=== PATIENT | female | born 1950 | race African-American/Black ===

== ENCOUNTER 2017-10-06 05:58 | Day surgery (SDC) | payer MEDICARE, OTHER ==
--- NOTE | 2017-10-05 13:23 | Pre-Procedure Note/Attestation ---
Pre-Procedure Note/Attestation Complete Prior to Procedure Planned Procedure: left Procedure Narrative: [place] with IOL, OS Indications for Procedure Pre-Operative Diagnosis: cataract Attestation I attest that I discussed the nature of the procedure; its benefits; risks and complications; and alternatives (and the risks and benefits of such alternatives ), prior to the procedure, with the patient (or the patient's legal junior sales representative). I attest that, if there was a reasonable possibility of needing a blood transfusion, the patient (or the patient's legal junior sales representative) was given the [facility] standardized written summary, pursuant to the Getachew Wanda Blood Safety Act ([place] Health and Safety Code # 1645, as amended). I attest that I re-evaluated the patient just prior to the surgery and that there has been no change in the patient's H&P, except as documented below: MATT WALTER Oct 05, 2017 13:23
--- NOTE | 2017-10-05 15:40 | Opthalmology H&P ---
Ophthalmology H&P H&P Chief Complaint: decreased vision in left eye HPI Vision Affects Ability to: read, focus/use eyes together, manage personal affairs HPI Narrative blurry vsion Exam Visual Acuity: OD: 20/80 OS: 20/200 Tension: OD: 14 OS: 17 Eye Exam: normal OU: external exam, palpebral fissure-width, marginal reflex distance, levator function, corneas, anterior chambers, findings: lens - OD: ns OS: ns, fundus exam - HTN retinopathy OU Assessment/Plan Diagnosis: (1) Nuclear sclerotic cataract of left eye Treatment Plan: cataract extraction w/ lens implant Goals of Treatment: improvement of vision, enhance quality of life Attestation Attestation The risks and benefits of the surgery as well as alternative procedures were explained to the patient in detail. MATT WALTER Oct 05, 2017 15:40
[2017-10-06] VITALS (8 sets, daily range): BP systolic 133–189; BP diastolic 62–79
[~2017-10-06] VITALS: Ht 165.1 cm; Wt 89.8 kg
[2017-10-06] MEDS ORDERED: Akten 3.5% 1ml Btl LEFT EYE ONE (07:00)
[2017-10-06] MEDS ORDERED: Maxitrol Opth Oint 3.5gm ONE (07:00)
[2017-10-06] MEDS ORDERED: Tetracaine 0.5% Opth 4ml Soln LEFT EYE ONE (07:00)
[2017-10-06] MEDS ORDERED: Dexamethasone 4mg/ml vial ONE (07:00)
[2017-10-06] MEDS ORDERED: Sterile Water 10ml Vial ONE (07:00)
[2017-10-06] MEDS ORDERED: Pred Forte 1% Opth Susp 1ml ONE (07:00)
[2017-10-06] MEDS ORDERED: EPINEPHrine 1mg/1ml Amp ONE (07:00)
[2017-10-06] MEDS ORDERED: Tetracaine 0.5% Opth 4ml Soln ONE (07:00)
[2017-10-06] MEDS ORDERED: Proparacaine 0.5% Opth Soln 15ml LEFT EYE ONE (07:00)
[2017-10-06] MEDS ORDERED: BSS 500ml btl ONE (07:00)
[2017-10-06] MEDS: Tropicamide 1% Opth 15ml Soln LEFT EYE SCH ×3 (07:34→07:53)
[2017-10-06] MEDS: Tobramycin Op Soln 0.3% 5ml LEFT EYE SCH ×3 (07:35→07:53)
[2017-10-06] MEDS: Ketorolac Tromethamine Opth 5ml Soln LEFT EYE SCH ×3 (07:35→07:53)
[2017-10-06] MEDS: Cyclopentolate 1% Opth Sol 2ml LEFT EYE SCH ×3 (07:35→07:53)
[2017-10-06] MEDS: Phenylephrine 10% Opth Soln 5ml LEFT EYE SCH ×3 (07:35→07:53)
[2017-10-06] MEDS ORDERED: LISINOPRIL20 MG ORAL (07:59)
[2017-10-06] MEDS ORDERED: MELOXICAM15 MG PO (07:59)
[2017-10-06] MEDS ORDERED: GABAPENTIN300 MG ORAL (07:59)
[2017-10-06] MEDS ORDERED: NORVASC5 MG ORAL (07:59)
--- NOTE | 2017-10-06 09:32 | Anethesia Preoperative Eval ---
VARSHA AGUAYO M.D. 10/06/17 0932: Anesthesia Pre-op PMH/ROS General Date of Evaluation: Oct 06, 2017 Anesthesiologist: Dimitri ASA Score: ASA 3 Mallampati Score Class I : Soft palate, uvula, fauces, pillars visible Class II: Soft palate, uvula, fauces visible Class III: Soft palate, base of uvula visible Class IV: Only hard plate visible Mallampati Classification: Class III Surgeon: Ning Diagnosis: Left cataract Surgical Procedure: Left cataract extraction with IOL Anesthesia History: none Family History: no anesthesia problems Allergies: Coded Allergies: No Known Allergies (Unverified , 10/06/17) Medications: see eMAR Past Medical History Cardiovascular: Reports: HTN, other - HLD, Denies: CAD, VT, valve dz, arrhythmia Pulmonary: Reports: asthma, Denies: COPD, FLAKO, other Gastrointestinal/Genitourinary: Reports: GERD, Denies: CRI, ESRD, other Neurologic/Psychiatric: Reports: other - vertigo, Denies: dementia, CVA, depression/anxiety, TIA Endocrine: Denies: DM, hypothyroidism, steroids, other HEENT: Reports: cataract (L), cataract (R), Denies: glaucoma, [place] (L), [place] (R), other Hematology/Immune: Reports: anemia - chronic, Denies: DVT, bleeding disorder, other Musculoskeletal/Integumentary: Reports: OA, Denies: RA, DJD, DDD, edema, other Other: obesity PSxH Narrative: Denies Anesthesia Pre-op Phys. Exam Physician Exam Last Vital Signs Date Time Temp Pulse Resp B/P (MAP) Pulse Ox O2 Delivery O2 Flow Rate FiO2 10/06/17 07:47 98.2 67 18 142/63 100 Room Air Constitutional: NAD Cardiovascular: RRR Respiratory: CTA Airway Exam Mallampati Score: Class III MO: limited ROM: limited Teeth: intact Anesthesia Pre-op A/P Labs see chart Studies Pre-op Studies: EKG - srs Risk Assessment & Plan Assessment: ASA III Plan: MAC Status Change Before Surgery: No Pre-Antibiotics Drug: N/A MOE WATSON 10/06/17 1050: Anesthesia Pre-op PMH/ROS General Date of Evaluation: Oct 06, 2017 Time of Evaluation: 10:20 Anesthesiologist: Dimitri Allergies: Coded Allergies: No Known Allergies (Unverified , 10/06/17) VARSHA AGUAYO M.D. Oct 06, 2017 09:32 MOE WATSON Oct 06, 2017 10:50
[2017-10-06] MEDS ORDERED: NS Irrig 1000ml ONE (10:30)
[2017-10-06] MEDS ORDERED: Midazolam 2mg/2ml Inj ONE (10:30)
[2017-10-06] MEDS ORDERED: Sterile Water Irrig 1000ml IRRIG ONE (10:30)
[2017-10-06] MEDS ORDERED: fentaNYL 100 mcg/2 mL IV ONE (10:30)
[2017-10-06] MEDS ORDERED: BSS 15ml BTL ONE (10:55)
[2017-10-06] MEDS ORDERED: Povidone-Iodine 5% opth solution ONE (10:55)
[2017-10-06] MEDS ORDERED: DiphenhydrAMINE 50mg/ml Inj ONE (10:55)
[2017-10-06] MEDS ORDERED: Sodium Hyaluronate 14 mg/ml 0.85ml ONE (10:56)
[2017-10-06] MEDS ORDERED: acetaZOLAMIDE 500mg Inj ONE (11:19)
[2017-10-06] MEDS ORDERED: LR 1000ml 1,000 ML IVLG SCH (11:44)
--- NOTE | 2017-10-06 11:44 | 48 Hour Post Anesthesia Eval ---
Post Anesthesia Evaluation Procedure: Left cataract extraction Date of Evaluation: Oct 06, 2017 Airway: patent Nausea: No Vomiting: No Pain Intensity: 0 Hydration Status: adequate Cardiopulmonary Status: at baseline Mental Status/LOC: patient returned to baseline Post-Anesthesia Complications: 0 Follow-up care needed: ready to discharge VARSHA AGUAYO M.D. Oct 06, 2017 11:44
--- NOTE | 2017-10-06 11:44 | Immediate Post-Op Evaluation ---
Immediate Post-Op Evalulation Immediate Post-Op Evalulation Procedure: Left cataract extraction with IOL Date of Evaluation: Oct 06, 2017 Time of Evaluation: 11:46 IV Fluids: 600 Blood Products: 0 Estimated Blood Loss: 0 Urinary Output: 0 Blood Pressure Systolic: 189 Blood Pressure Diastolic: 70 Pulse Rate: 77 Respiratory Rate: 16 O2 Sat by Pulse Oximetry: 100 Temperature (Fahrenheit): 98.9 Pain Score (1-10): 0 Nausea: No Vomiting: No Complications 0 Patient Status: awake, reacts, patent, none Hydration Status: adequate Drug: N/A VARSHA AGUAYO M.D. Oct 06, 2017 11:44
[2017-10-06] MEDS ORDERED: DiphenhydrAMINE 50mg/ml Inj IVP PRN (11:45)
--- NOTE | 2017-10-09 09:31 | Brief Operative Note ---
Immediate Post Operative Note Operative Note Chief Complaint: blurry vision Pre-op Diagnosis: cataract, OS Procedure: Cataract extraction, OS Post-op Diagnosis: Aphakia, OS Post-op Diagnosis: same as pre-op Findings: consistent w/pre-op dx studies Surgeon: Ning Anesthesiologist: Ghislaine Anesthesia: MAC Specimen: none Complications: none Fluids: LR Estimated Blood Loss: none Drains: none Implant(s) used?: Yes MATT WALTER Oct 09, 2017 09:31
--- NOTE | 2017-10-09 09:46 | Operative Note - PDOC ---
Operative Note Operative Note Date of Operation/Procedure: Oct 06, 2017 Chief Complaint: blurry vision Pre-op Diagnosis: cataract, OS Procedure: Cataract extraction, OS Post-op Diagnosis: Aphakia, OS Post-op Diagnosis: same as pre-op Operative Findings: consistent w/pre-op dx studies, other - zonular dislysis, OS Surgeon: Ning Anesthesiologist: Ghislaine Anesthesia: MAC Specimen: none Complications: none Condition: stable Fluids: LR Estimated Blood Loss: none Drains: none Implant(s) used?: Yes Indications for Procedure cataract Description of Procedure This patient has been complaining visually significant cataract in the affected eye with the best corrected visual acuity under moderate glare conditions worse. The patient complains of difficulties with glare in performing activities of daily living and wants to manage personal affairs with comfort and accuracy and see well enough to move with safety at home and outdoors. The risks, benefits and alternatives of the procedure were discussed with the patient in the office prior to scheduling surgery. All questions from the patient were answered after the surgical procedure was explained in detail. The risks of the procedure as explained to the patient include, but are not limited to, pain, infection, bleeding, loss of vision, retinal detachment, need for further surgery, loss of lens nucleus, double vision, etc. Alternative procedures were discussed which include, to do nothing or seek a second opinion. Informed consent for this procedure was obtained from the patient. The patient was referred to a primary care physician for a cardiopulmonary clearance prior to surgery, after proper evaluation was done patient was properly scheduled for outpatient surgery. The patient was brought to the operating room where the anesthesiologist established I.V. lines and cardiac monitoring leads. Mild intravenous sedation was administered. The patient was then prepared with a 5% solution of povidone -iodine to the conjunctival fornix and lashes, and a 5% solution of povidone- iodine to the lids and periorbital skin. The patient was then draped in the usual sterile fashion. A lid speculum was then placed in the operative eye. A keratome blade was then used to create a biplanar incision into the anterior chamber. Viscoelastics was then instilled into the anterior chamber. As the utrata forceps was being introduced to start capsulorrhexis, it was noted that the lens was tilted and zonular dialysis was noted. After careful re evaluation of the surgical field, viscoelastics was removed from the anterior chamber using the irrigation and aspiration unit. No further manipulation was done. The corneal wound was then tested for leaks and none were found. The lid speculum were then removed. Sponge and needle counts were correct. An eye patch and shield were placed over the operative eye. The patient was taken to the recovery room in stable condition. The patient was then referred to another facility for further evaluation and management on the same day. MATT WALTER Oct 09, 2017 09:45
== END 2017-10-06 12:45 | disposition home or self-care (01) ==
LOC: SUR 05:58
DX: H25.12 Age-related nuclear cataract, left eye (principal); I12.9 Hypertensive chronic kidney disease with stage 1 through stage 4 chronic kidney disease, or unspecified chronic kidney disease; N18.3 Chronic kidney disease, stage 3 (moderate); K21.9 Gastro-esophageal reflux disease without esophagitis; E78.5 Hyperlipidemia, unspecified; M19.90 Unspecified osteoarthritis, unspecified site; M06.9 Rheumatoid arthritis, unspecified; G47.30 Sleep apnea, unspecified; Z79.82 Long term (current) use of aspirin
CPT/HCPCS: 66984; J0171; J1100; J1120; J1200; J2250; J3010; J3370; 94003; 94150; A4216

== ENCOUNTER 2017-10-09 06:13 | Day surgery (SDC) | payer MEDICARE, MEDICAID ==
--- NOTE | 2017-10-06 20:45 | Pre-op HX & Phy Repo 2 SIG ---
DATE OF ADMISSION: 10/09/2017 DATE OF DICTATION: 10/06/2017. DATE OF SERVICE: 10/09/2017. PREOPERATIVE DIAGNOSIS: Retained lens material, left eye with aphakia. BRIEF NOTE: This is a second [facility] admission for this patient who is a very nice 66-year-old lady, who was admitted initially for cataract surgery on the left eye on 10/06/2017. During procedure there was noted to be rupture of the posterior capsule with loss of the nucleus and disruption of cortical material into the anterior chamber. The eye was closed and she was referred to my office where the diagnosis of retained lens material with aphakia was made. She is admitted for a vitrectomy with lens implant. PAST OCULAR HISTORY: Remarkable for cataract developing in both eyes as well as recent cataract surgery PAST MEDICAL HISTORY: Remarkable for arthritis, hypertension. MEDICATIONS: She is on oral medications including aspirin. PHYSICAL EXAMINATION: Best vision at the time of admission was 20/80- in the right eye. Counting fingers in the left with pressures of 13 and 7. Anterior segment on the right was quiet with presence of moderate nuclear cataract. On the left, there was a cataract wound well sutured temporally. The cornea showed mild edema. Cortical material was seen in the anterior chamber with a nice round pupil. The capsule was ruptured. Posteriorly the retina was attached. There was cortical uclear material down below. General physical examination was reviewed and sent on Monday. ASSESSMENT: Dislocated retained lens material, left eye. PLAN: The plan is to perform a pars plana vitrectomy with removal of the lens material and placement of a secondary implant either anterior posterior chamber. The risks and benefits of the surgery gone over the patient with potential infection, hemorrhage, glaucoma, remote possibility of loss of the eye. The risk of anesthesia was discussed. The patient understands and consents to the surgery which wilL be performed on Monday Arsenio Miller M.D. DR: Ravin JOB#: [id number] CC:
[~2017-10-09] VITALS: Ht 165.1 cm; Wt 89.8 kg
[2017-10-09] VITALS (9 sets, daily range): BP systolic 121–149; BP diastolic 56–73
[~2017-10-09 06:13] MED LIST: BSS 15ml BTL ONE; Cyclopentolate 1% Opth Sol 2ml ONE; Flurbiprofen 0.03% Opth Sol 2.5ml ONE; GABAPENTIN300 MG ORAL; LISINOPRIL20 MG ORAL; MELOXICAM15 MG PO; NORVASC5 MG ORAL; Phenylephrine 2.5% Op 2ml Soln ONE; Povidone-Iodine 5% opth solution ONE; Pred Forte 1% Opth Susp 1ml LEFT EYE ONE; Sodium Hyaluronate 14 mg/ml 0.85ml ONE; Vigamox Opth Soln 3ml ONE
--- NOTE | 2017-10-09 06:35 | Pre-Procedure Note/Attestation ---
Pre-Procedure Note/Attestation Complete Prior to Procedure Planned Procedure: left Procedure Narrative: PPV, fragmentation and removal of retained lens material, placement of secondary lens implant L eye Indications for Procedure Pre-Operative Diagnosis: Retained lens fragments post cataract surgery Left eye Attestation I attest that I discussed the nature of the procedure; its benefits; risks and complications; and alternatives (and the risks and benefits of such alternatives ), prior to the procedure, with the patient (or the patient's legal underwriting sales representative). I attest that, if there was a reasonable possibility of needing a blood transfusion, the patient (or the patient's legal underwriting sales representative) was given the [facility] standardized written summary, pursuant to the Getachew Tyler Blood Safety Act ([place] Health and Safety Code # 1645, as amended). I attest that I re-evaluated the patient just prior to the surgery and that there has been no change in the patient's H&P, except as documented below: ELAINE SUGGS Oct 09, 2017 06:35
[2017-10-09] MEDS: Vigamox Opth Soln 3ml LEFT EYE SCH ×3 (06:40→06:59)
[2017-10-09] MEDS: Cyclopentolate 1% Opth Sol 2ml LEFT EYE SCH ×3 (06:40→06:59)
[2017-10-09] MEDS: Flurbiprofen 0.03% Opth Sol 2.5ml LEFT EYE SCH ×3 (06:40→06:59)
[2017-10-09] MEDS: Phenylephrine 2.5% Op 2ml Soln LEFT EYE SCH ×3 (06:40→06:59)
[2017-10-09] MEDS ORDERED: Norco 5mg/325mg tab ORAL PRN (06:45)
[2017-10-09] MEDS ORDERED: Dexamethasone 4mg/ml vial ONE (07:03)
[2017-10-09] MEDS ORDERED: BSS 500ml btl ONE ×2 (07:03→09:25)
[2017-10-09] MEDS ORDERED: Tetracaine 0.5% Opth 4ml Soln ONE (07:03)
[2017-10-09] MEDS ORDERED: Povidone-Iodine 5% opth solution ONE (07:04)
[2017-10-09] MEDS ORDERED: Bupivacaine 0.75% 30ml vial INJ ONE (07:04)
[2017-10-09] MEDS ORDERED: EPINEPHrine 1mg/1ml Amp ONE (07:04)
[2017-10-09] MEDS ORDERED: BSS 15ml BTL ONE (07:04)
[2017-10-09] MEDS ORDERED: Lidocaine 2% MPF 5ml Vial INJ ONE (07:04)
[2017-10-09] MEDS ORDERED: Maxitrol Opth Oint 3.5gm ONE (07:05)
[2017-10-09] MEDS ORDERED: Sodium Hyaluronate 10 mg/ml 0.85ml ONE (07:26)
[2017-10-09] MEDS ORDERED: Kenalog-40 1ml Vial ONE (07:26)
[2017-10-09] MEDS ORDERED: Kenalog-10 5ml Inj ONE (07:26)
[2017-10-09] MEDS ORDERED: LR 1000ml ONE (07:30)
[2017-10-09] MEDS ORDERED: NS Irrig 1000ml ONE (07:30)
[2017-10-09] MEDS ORDERED: Midazolam 2mg/2ml Inj ONE (07:30)
[2017-10-09] MEDS ORDERED: fentaNYL 100 mcg/2 mL IV ONE (07:30)
[2017-10-09] MEDS ORDERED: Propofol 200mg/20ml IV ONE (07:30)
[2017-10-09] MEDS ORDERED: Sterile Water Irrig 1000ml IRRIG ONE (07:30)
[2017-10-09] MEDS ORDERED: LR 1000ml 1,000 ML IVLG SCH (08:30)
[2017-10-09] MEDS ORDERED: LR 1000ml 1,000 ML IV SCH (08:30)
[2017-10-09] MEDS ORDERED: fentaNYL 100 mcg/2 mL IV PRN (08:30)
--- NOTE | 2017-10-09 08:38 | Anethesia Preoperative Eval ---
Anesthesia Pre-op PMH/ROS General Date of Evaluation: Oct 09, 2017 Time of Evaluation: 07:30 Anesthesiologist: Fletcher ASA Score: ASA 3 Mallampati Score Class I : Soft palate, uvula, fauces, pillars visible Class II: Soft palate, uvula, fauces visible Class III: Soft palate, base of uvula visible Class IV: Only hard plate visible Mallampati Classification: Class II Surgeon: Paul Diagnosis: Retained Lens material Surgical Procedure: Vitrectomy Allergies: Coded Allergies: No Known Allergies (Unverified , 10/09/17) Past Medical History Cardiovascular: Reports: HTN, Denies: CAD, [place], valve dz, arrhythmia, other Pulmonary: Denies: asthma, COPD, FLAKO, other Gastrointestinal/Genitourinary: Reports: CRI, Denies: GERD, ESRD, other Neurologic/Psychiatric: Denies: dementia, CVA, depression/anxiety, TIA, other Endocrine: Denies: DM, hypothyroidism, steroids, other HEENT: Reports: cataract (L) Hematology/Immune: Denies: anemia, DVT, bleeding disorder, other Musculoskeletal/Integumentary: Reports: OA, RA PMH Narrative: HTN, OA, RA, chronic renal insufficiency PSxH Narrative: Right wrist, left ear, left eye Anesthesia Pre-op Phys. Exam Physician Exam Last Vital Signs Date Time Temp Pulse Resp B/P (MAP) Pulse Ox O2 Delivery O2 Flow Rate FiO2 10/09/17 06:50 98.6 66 18 149/73 99 Room Air Constitutional: NAD Neurologic: CN 2-12 intact Cardiovascular: RRR, no M/R/G Respiratory: CTA Gastrointestinal: S/NT/ND Airway Exam Mallampati Score: Class II MO: full ROM: full Teeth: intact Anesthesia Pre-op A/P Labs WNL except Cr elevated Studies Pre-op Studies: EKG - NSR Risk Assessment & Plan Assessment: ASA class 3 patient with history of claustrophobia now requiring vitrectomy secondary to retained lens material after claustrophobic reaction during cataract surgery. Plan: GA, LMA Status Change Before Surgery: No Pre-Antibiotics Drug: None KENDAL DENSON M.D. Oct 09, 2017 08:38
--- NOTE | 2017-10-09 08:40 | Immediate Post-Op Evaluation ---
Immediate Post-Op Evalulation Immediate Post-Op Evalulation Procedure: Vitrectomy, removal of retained lens material Date of Evaluation: Oct 09, 2017 Time of Evaluation: 10:20 IV Fluids: 700 Blood Pressure Systolic: 149 Blood Pressure Diastolic: 67 Pulse Rate: 65 Respiratory Rate: 18 O2 Sat by Pulse Oximetry: 100 Temperature (Fahrenheit): 98.3 Pain Score (1-10): 0 Nausea: No Vomiting: No Complications No complication Patient Status: awake, patent, none Hydration Status: adequate Drug: None KENDAL DENSON M.D. Oct 09, 2017 08:40
[2017-10-09] MEDS ORDERED: Pilocarpine 4% Opth 15ml Soln ONE (09:55)
--- NOTE | 2017-10-09 10:16 | Brief Operative Note ---
Immediate Post Operative Note Operative Note Chief Complaint: Large floaters Pre-op Diagnosis: Retained lens fragments post cataract surgery Left eye Procedure: PPV, fragmentation and removal of retained lens material, suture placement of PC lens OS Post-op Diagnosis: same as pre-op Findings: consistent w/pre-op dx studies Surgeon: leyla Anesthesiologist: chelsey Anesthesia: general Specimen: none Complications: none Condition: stable Fluids: Per Anesthesia Estimated Blood Loss: none Drains: none Implant(s) used?: Yes - 21.5 D PC sutured-in lens ELAINE SUGGS Oct 09, 2017 10:16
--- NOTE | 2017-10-09 10:17 | 48 Hour Post Anesthesia Eval ---
Post Anesthesia Evaluation Procedure: Vitrectomy, removal of retained lens material Date of Evaluation: Oct 09, 2017 Time of Evaluation: 10:45 Blood Pressure Systolic: 139 0: 70 Pulse Rate: 64 Respiratory Rate: 14 O2 Sat by Pulse Oximetry: 100 Airway: patent Nausea: No Vomiting: No Pain Intensity: 0 Hydration Status: adequate Cardiopulmonary Status: Stable Mental Status/LOC: patient returned to baseline Follow-up Care/Observations: As per surgery Post-Anesthesia Complications: No anesthetic complication Follow-up care needed: N/A KENDAL DENSON M.D. Oct 09, 2017 10:17
--- NOTE | 2017-10-09 18:30 | Operative Note - Dictated ---
DATE OF OPERATION: 10/09/2017 PREOPERATIVE DIAGNOSIS: Retained lens material, left eye. POSTOPERATIVE DIAGNOSIS: Retained lens material, left eye. PROCEDURES PERFORMED: 1. Pars plana vitrectomy. 2. Fragmentation and removal of retained lens material. 3. Suture placement of posterior chamber lens, left eye. SURGEON: Arsenio Miller M.D. REFERRING SURGEON: Matt Walter M.D. SENIOR GENETIC COUNSELOR: None. ANESTHESIA: LMA general. ANESTHESIOLOGIST: Getachew Tyler M.D. JUSTIFICATION FOR SURGERY: This 66-year-old lady underwent cataract surgery on Monday, which resulted in rupture of the posterior capsule and posterior displacement of lens fragments. BRIEF NOTE: The patient was brought to the operating room, placed on the operating room table in supine position. After a time-out was performed and agreed upon by the staff, general LMA anesthesia was induced by Dr. Tyler. Retrobulbar and Van Lint blocks again then given in the standard way to limit the need for intraoperative anesthetic. The patient was then prepped and draped in normal manner. A lid speculum was inserted into the left eye. A 220-degree superior peritomy was cut with relaxation incisions at 8:30 and at 3:30. An infusion line was then inserted 4 mm from limbus inferotemporally using the 23-gauge trocar system. Two additional cannulas were placed superiorly. Vitrectomy was then begun posterior to the iris plane. Cortical and vitreous debris were removed, rounding up the pupil nicely. Residual cortical material was removed from the edges of the capsular remnants. The vitrectomy was carried further posteriorly using a wide-angle viewing system. A central core vitrectomy was done followed by peripheral vitrectomy leaving a small vitreous skirt. The posterior hyaloid was engaged just nasal to the optic nerve and this was elevated and removed. A 2 to 3 large fragments of nuclear material were noted posteriorly. At this juncture, the superonasal sclerotomy was enlarged to 20-gauge size and the fragmatome was then used to gently remove remaining nuclear fragments. Scleral depression was performed and no breaks, tears or detachments were seen. The vitreous was shaved, flushed with the retina at the 3 and 9 o'clock position in preparation for suture placement of the lens. Areas were marked at the 3 and 9 o'clock position 2 mm posterior to the limbus and 2 mm apart. The 20-gauge MVR blade was used to form small openings at these sites, roughly half thickness of sclera. A 10-0 Prolene suture on straight needles was then chosen. The sutures were passed from nasally to temporally using a 27-gauge needle to except the suture and pulled through. Two half sutures of Prolene were used. The sutures were left posterior to the iris in the mid pupil. A 21.5-diopter posterior chamber lens with eyelets on the haptics was chosen. The optic was measured at 7 mm. A groove was cut at the surgical limbus on the edge of clear cornea and using a keratome, the anterior chamber was entered and the wound extended to either side 7 mm. The intra-ocular forceps were used to grasp the sutures and pulled them at 4 to 12 o'clock. The sutures were cut and laid to either side. The lens was chosen, was placed on the field, rinsed with balanced salt solution and covered with Healon. The anterior chamber was infiltrated with Healon as well. Sutures on either side were passed through the eyelet and secured. The knot was rotated out of the eye. The lens was then introduced into the anterior chamber and posterior to the iris and pulled up snugly on either side in perfect position at 3 and 9. The suture was not tied at this point. The superior cataract wound was closed with interrupted sutures of 10-0 nylon, 6 in total. The knots were buried. Healon was irrigated from the anterior chamber. The Prolene suture was then pulled up and secured with a surgeon's knot and rotated into the wound. The lens was nicely and securely positioned. At this juncture, all cannulas were removed and the wounds were closed with 8-0 Vicryl suture. Conjunctiva and Tenon's capsule were pulled up and secured with 6-0 plain catgut. Subconjunctival Decadron and gentamicin were then injected inferiorly and Maxitrol ointment as well as prednisolone, Vigamox, and pilocarpine 4% drops were instilled. The eye was patched and shielded. The patient was taken to recovery in excellent condition. There were no complications. Arsenio Miller M.D. DR: PEACE JOB#: [id number] CC: Arsenio Miller M.D.; Fax#: [phone] MATT WALTER M.D. ; FAX#: [phone]
== END 2017-10-09 12:20 | disposition home or self-care (01) ==
LOC: SUR 06:13
DX: H59.022 Cataract (lens) fragments in eye following cataract surgery, left eye (principal); M19.90 Unspecified osteoarthritis, unspecified site; Z79.82 Long term (current) use of aspirin; E78.5 Hyperlipidemia, unspecified; I12.9 Hypertensive chronic kidney disease with stage 1 through stage 4 chronic kidney disease, or unspecified chronic kidney disease; N18.9 Chronic kidney disease, unspecified; M06.9 Rheumatoid arthritis, unspecified; G47.30 Sleep apnea, unspecified
CPT/HCPCS: 66852; 66986; J0171; J1100; J2250; J2405; J2704; J3010; J3301; J3470; J3490; J7120; V2632; 94003; 94150